=== PATIENT | female | born 1980 | race Two or more races ===

== ENCOUNTER 2018-01-27 00:35 | Emergency (ER) | payer MEDICAID ==
--- NOTE | 2018-01-27 00:36 | EDPHY ---
H & P Time Seen by Provider: 01/27/18 00:36 HPI/ROS: HPI CHIEF COMPLAINT: Left-sided headache x1 week. Hypertension. HISTORY OF PRESENT ILLNESS: This patient is a 37-year-old female, history of asthma, otherwise healthy presents emergency room with headache x1 week. She reports she has left-sided headache that she describes as "painful" describes as left-sided nonradiating. Denies chest pain or shortness of breath denies neck pain or neck stiffness. Denies fever. 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 She decided to check her blood pressure today while at work and noted that it was high. She denies being sick recently tear. Denies visual disturbance or vomiting. Denies fever. She states due to the headache and having high blood pressure in the emergency room she decided to go home earlier this evening and then checked back and to the emergency room as the patient. This is not a thunderclap headache. Not the worst headache of her life. However she does not usually get regular headaches. 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 Family History: No significant family history ROS REVIEW OF SYSTEMS: A comprehensive 10 point review of systems is otherwise negative aside from elements mentioned in the history of present illness. Exam Constitutional appears well nontoxic no acute distress triage nursing summary reviewed, vital signs reviewed, awake/alert. Blood pressure noted elevated at triage Eyes normal conjunctivae and sclera, EOMI, PERRLA. HENT normal inspection, atraumatic, moist mucus membranes, no epistaxis, neck supple/ no meningismus, no raccoon eyes. Respiratory clear to auscultation bilaterally, normal breath sounds, no respiratory distress, no wheezing. Cardiovascular rate normal, regular rhythm, no murmur, no edema, distal pulses normal. Gastrointestinal soft, non-tender, no rebound, no guarding, normal bowel sounds, no distension, no pulsatile mass. Genitourinary no CVA tenderness. Musculoskeletal no midline vertebral tenderness, full range of motion, no calf swelling, no tenderness of extremities, no meningismus, good pulses, neurovascularly intact. Skin pink, warm, & dry, no rash, skin atraumatic. Neurologic awake, alert and oriented x 3, AAOx3, moves all 4 extremities equally, motor intact, sensory intact, CN II-XII intact, normal cerebellar, normal vision, normal speech. Psychiatric normal mood/affect. Heme/Lymph/Immune no lymphadenopathy. Differential Diagnosis: Includes but is not limited to in a particular order migraine headache, tension headache, cluster headache, intracranial bleed, tumor , hypertension urgency Medical Decision Making: Plan for this patient will treat with IV establishment with blood draw, IV fluids, migraine cocktail, CT head without contrast, basic blood work, UA, test, thyroid. Re-evaluate. Re-evaluation: CT head without contrast negative for acute abnormality called to me by Dr. Kirk. [id number]: CT scan is unremarkable. I did re-evaluate her at this time she is resting comfortably in no acute distress. She states her headache is completely gone after medication. Blood work has been reviewed she does have an elevated TSH concerning for hypothyroidism. I do recommend she follows up closely with her primary care doctor about further thyroid testing. Additionally blood pressures improved nicely here with pain control. I do recommend she monitor blood pressure closely over the next 2 weeks. Gets with her primary care doctor she has elevated readings. Additionally she understands return emergency room if develops worsening headache fever vomiting. Her neurological exam here in emergency room is unremarkable and she feels much better. Vital signs stable. Source: Patient - Medical/Surgical History Other PMH: HX OF ASTHMA. HX OF PPD Constitutional: Initial Vital Signs Temperature (C) 36.6 C 01/27/18 00:39 Heart Rate 78 01/27/18 00:39 Respiratory Rate 18 01/27/18 00:39 Blood Pressure 185/102 H 01/27/18 00:39 O2 Sat (%) 98 01/27/18 00:39 O2 Delivery Mode Room Air Allergies/Adverse Reactions: No Known Allergies Allergy (Verified 01/27/18 00:38) Home Medications: Medication Instructions Recorded Albuterol IH PRN 07/12/16 Ferrous Sulf 325 MG (*) PO 07/12/16 Medical Decision Making - Data Points Laboratory Results: Laboratory Results 01/27/18 01:12 01/27/18 01:12 01/27/18 01/27/18 01/27/18 01:12 01:12 01:12 WBC RBC Hgb Hct MCV MCH MCHC RDW Plt Count MPV Neut % (Auto) Lymph % (Auto) Barbour % (Auto) Eos % (Auto) Baso % (Auto) Nucleat RBC Rel Count Absolute Neuts (auto) Absolute Lymphs (auto) Absolute Monos (auto) Absolute Eos (auto) Absolute Basos (auto) Absolute Nucleated RBC Immature Gran % Immature Gran # PT 13.2 SEC SEC (12.0-15.0) INR 0.98 (0.83-1.16) Sodium 142 mEq/L mEq/L (135-145) Potassium 3.8 mEq/L mEq/L (3.5-5.2) Chloride 105 mEq/L mEq/L (97-110) Carbon Dioxide 26 mEq/l mEq/l (22-31) Anion Gap 11 mEq/L mEq/L (8-16) BUN 12 mg/dL mg/dL (7-23) Creatinine 0.6 mg/dL mg/dL (0.6-1.0) Estimated GFR > 60 Glucose 141 mg/dL H mg/dL (70-100) Calcium 9.1 mg/dL mg/dL (8.5-10.4) TSH 10.400 uIU/mL H uIU/mL (0.465-4.680) Beta HCG, Qual NEGATIVE 01/27/18 01:12 WBC 7.90 10^3/uL 10^3/uL (3.80-9.50) RBC 4.47 10^6/uL 10^6/uL (4.18-5.33) Hgb 12.7 g/dL g/dL (12.6-16.3) Hct 36.7 % L % (38.0-47.0) MCV 82.1 fL fL (81.5-99.8) MCH 28.4 pg pg (27.9-34.1) MCHC 34.6 g/dL g/dL (32.4-36.7) RDW 13.1 % % (11.5-15.2) Plt Count 259 10^3/uL 10^3/uL (150-400) MPV 10.3 fL fL (8.7-11.7) Neut % (Auto) 60.7 % % (39.3-74.2) Lymph % (Auto) 28.7 % % (15.0-45.0) Barbour % (Auto) 5.3 % % (4.5-13.0) Eos % (Auto) 4.6 % % (0.6-7.6) Baso % (Auto) 0.4 % % (0.3-1.7) Nucleat RBC Rel Count 0.0 % % (0.0-0.2) Absolute Neuts (auto) 4.80 10^3/uL 10^3/uL (1.70-6.50) Absolute Lymphs (auto) 2.27 10^3/uL 10^3/uL (1.00-3.00) Absolute Monos (auto) 0.42 10^3/uL 10^3/uL (0.30-0.80) Absolute Eos (auto) 0.36 10^3/uL 10^3/uL (0.03-0.40) Absolute Basos (auto) 0.03 10^3/uL 10^3/uL (0.02-0.10) Absolute Nucleated RBC 0.00 10^3/uL 10^3/uL (0-0.01) Immature Gran % 0.3 % % (0.0-1.1) Immature Gran # 0.02 10^3/uL 10^3/uL (0.00-0.10) PT INR Sodium Potassium Chloride Carbon Dioxide Anion Gap BUN Creatinine Estimated GFR Glucose Calcium TSH Beta HCG, Qual Medications Given: Discontinued Medications Dexamethasone (Decadron Injection) 10 mg IVP EDNOW ONE Stop: 01/27/18 00:58 Last Admin: 01/27/18 01:17 Dose: 10 mg Diphenhydramine HCl (Benadryl Injection) 50 mg IVP EDNOW ONE Stop: 01/27/18 00:58 Last Admin: 01/27/18 01:17 Dose: 50 mg Sodium Chloride (Ns) 1,000 mls @ 0 mls/hr IV ONCE ONE; Wide Open PRN Reason: Protocol Stop: 01/27/18 00:58 Last Admin: 01/27/18 01:15 Dose: 1,000 mls Ketorolac Tromethamine (Toradol) 30 mg IVP EDNOW ONE Stop: 01/27/18 00:58 Last Admin: 01/27/18 01:15 Dose: 30 mg Metoclopramide HCl (Reglan Injection) 10 mg IVP EDNOW ONE Stop: 01/27/18 00:58 Last Admin: 01/27/18 01:17 Dose: 10 mg Departure - Departure Disposition: Home, Routine, Self-Care Clinical Impression: Headache Qualifiers: Headache type: unspecified Headache chronicity pattern: acute headache Intractability: intractable Qualified Code(s): R51 - Headache Hypothyroid Qualifiers: Hypothyroidism type: unspecified Qualified Code(s): E03.9 - Hypothyroidism, unspecified Condition: Good Instructions: Hypothyroidism (ED), Acute Headache (ED) Additional Instructions: 1. Follow up with her primary care doctor. 2. Return emergency review of worsening headache high blood pressure questions or concerns. 3. Over the next 2 weeks keep a log of your blood pressure checked twice a day. 4. You're TSH is noted to be very high in the emergency room. Please follow up with primary care doctor about this. Referrals: Princess Wise DO [Primary Care Provider] - As per Instructions
[2018-01-27] MEDS ORDERED: DEXAMETHASONE 10 MG/ML VIAL IVP ONE (00:57)
[2018-01-27] MEDS ORDERED: METOCLOPRAMIDE 10 MG/2 ML VIAL IVP ONE (00:57)
[2018-01-27] MEDS ORDERED: KETOROLAC 30 MG/1 ML SDV IVP ONE (00:57)
[2018-01-27] MEDS ORDERED: NS 1,000 ML IV ONE (00:57)
[2018-01-27 01:20] LABS: PLATELET COUNT 259 10^3/uL (150-400)
[2018-01-27 01:30] LABS: INR 0.98 (0.83-1.16); PROTIME(PATIENT) 13.2 SEC (12.0-15.0)
[2018-01-27 02:07] VITALS: BP 145/92
== END 2018-01-27 02:31 | disposition home or self-care (01) ==
DX: R51 Headache (principal); E03.9 Hypothyroidism, unspecified; J45.909 Unspecified asthma, uncomplicated; E86.9 Volume depletion, unspecified
CPT/HCPCS: 96374; J1100; J1200; J1885; J2765

== ENCOUNTER → 2018-07-22 | Outpatient (CLI) | payer OTHER, MEDICAID | LOC: CIMAGING 09:11 | PROVIDERS: ATTEND Physical Medicine & Rehabilitation | DX: M25.531 Pain in right wrist (principal) | CPT/HCPCS: 73110-PO ==

== ENCOUNTER 2018-08-12 01:29 | Emergency (ER) | payer OTHER, MEDICAID ==
[2018-08-12 01:37] VITALS: BP 144/85
--- NOTE | 2018-08-12 01:39 | EDPHY ---
H & P Stated Complaint: stuck with somethin sharp at work in R hand @2130 Time Seen by Provider: 08/12/18 01:39 HPI/ROS: HPI CHIEF COMPLAINT: Broken right hand by a sharp object in trash. At work. 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 She pushed down the trash bag with gloves on. Something poked her in the right hand. She did wash this area. She does not recall seeing any blood. However thinks that she may have punctured her right hand. Unclear what these sharp object is. Tetanus shot is up-to-date. Past Medical History: Migraine headaches. Past Surgical History: No recent surgical history Social History: Denies drugs alcohol tobacco. Works in housekeeping. Family History: Noncontributory ROS REVIEW OF SYSTEMS: 10 Systems were reviewed and negative with the exception of the elements mentioned in the history of present illness. Exam Constitutional triage nursing summary reviewed, vital signs reviewed, awake/ alert. Eyes normal conjunctivae and sclera, EOMI, PERRLA. HENT normal inspection, atraumatic, moist mucus membranes, no epistaxis, neck supple/ no meningismus, no raccoon eyes. Respiratory clear to auscultation bilaterally, normal breath sounds, no respiratory distress, no wheezing. Cardiovascular rate normal, regular rhythm, no murmur, no edema, distal pulses normal. Gastrointestinal soft, non-tender, no rebound, no guarding, normal bowel sounds, no distension, no pulsatile mass. Genitourinary no CVA tenderness. Musculoskeletal no midline vertebral tenderness, full range of motion, no calf swelling, no tenderness of extremities, no meningismus, good pulses, neurovascularly intact. Skin no significant trauma to the palmar surface of the right hand, pink, warm , & dry, no rash, skin atraumatic. Neurologic awake, alert and oriented x 3, AAOx3, moves all 4 extremities equally, motor intact, sensory intact, CN II-XII intact, normal cerebellar, normal vision, normal speech. Psychiatric normal mood/affect. Heme/Lymph/Immune no lymphadenopathy. Differential Diagnosis: Includes but is not limited to in a particular order possible blood borne exposure, body fluid exposure, puncture wound to the hand Medical Decision Making: Plan for this patient will have her follow up with employee health, will have her fill out appropriate paperwork. Will clean her wound. Re-evaluation: Recommend patient follows up with [facility]. This was unknown source, unknown object. No signs of significant trauma on exam. No signs of infection on exam. Tetanus shot up-to-date. Recommend following up with [facility]. Source: Patient - Personal History Current Tetanus/Diphtheria Vaccine: Yes - Medical/Surgical History Hx Asthma: Yes Hx Chronic Respiratory Disease: No Hx Diabetes: No Hx Cardiac Disease: No Hx Renal Disease: No Hx Cirrhosis: No Hx Alcoholism: No Hx HIV/AIDS: No Hx Splenectomy or Spleen Trauma: No Other PMH: HX OF ASTHMA, DM2. HX OF PPD - Social History Smoking Status: Never smoked Constitutional: Initial Vital Signs Temperature (C) 36.7 C 08/12/18 01:34 Heart Rate 90 08/12/18 01:34 Respiratory Rate 16 08/12/18 01:34 Blood Pressure 144/85 H 08/12/18 01:34 O2 Sat (%) 96 08/12/18 01:34 O2 Delivery Mode Room Air Allergies/Adverse Reactions: No Known Allergies Allergy (Verified 01/27/18 00:38) Home Medications: Medication Instructions Recorded Albuterol IH PRN 07/12/16 Metformin HCl 08/12/18 Departure - Departure Disposition: Home, Routine, Self-Care Clinical Impression: Puncture wound Condition: Good Instructions: Puncture Wound (ED) Referrals: Princess Wise DO [Primary Care Provider] - As per Instructions [facility],. [Clinic] - As per Instructions
== END 2018-08-12 01:51 | disposition home or self-care (01) ==
DX: S61.431A Puncture wound without foreign body of right hand, initial encounter (principal); E11.9 Type 2 diabetes mellitus without complications; Z79.84 Long term (current) use of oral hypoglycemic drugs; W26.9XXA Contact with unspecified sharp object(s), initial encounter; Y93.E9 Activity, other interior property and clothing maintenance; Y92.239 Unspecified place in hospital as the place of occurrence of the external cause; Y99.0 Civilian activity done for income or pay